=== PATIENT | male | born 1995 | race Caucasian/White ===

== ENCOUNTER 2021-03-20 02:55 | Emergency (ER) | payer OTHER ==
[2021-03-20 03:02] VITALS: BP 130/81; PULSE 112; TEMP 98.3; BMI 23.7
[2021-03-20] MEDS ORDERED: HEPATITIS B IMMUNE GLOBULIN 5 ML VIAL IM ONE (03:39)
[2021-03-20] MEDS ORDERED: HIV POST EXPOSURE PROPHYLAXIS KIT NR ONE (04:06)
[2021-03-20] MEDS ORDERED: HIV POST EXPOSURE PROPHYLAXIS KIT PO ONE (04:07)
[2021-03-20 04:42] LABS: BASO % 0.2 % (0-2.0); EOS % 0.2 % (0-4.5); HEMATOCRIT 42.4 % (35.4-49); HEMOGLOBIN 15.1 GM/dL (11.7-16.9); LYMPH % 22.4 % (8-40); MCH 31.2 pg (25.7-33.7); MCHC 35.6 g/dl (32.0-35.9); MEAN CELL VOLUME 87.6 fl (80-96); MEAN PLT VOLUME 7.4 fl (7.5-11.1); MONO % 7.3 % (3.8-10.2); NEUT % 69.9 % (42.8-82.8); PLATELET COUNT 233 10^3/uL (134-434); RBC 4.83 M/mm3 (4.00-5.60); RDW 13.5 % (11.9-15.9); WHITE BLOOD COUNT 9.4 K/mm3 (4.0-10.0)
[2021-03-20 05:01] LABS: CALCIUM 9.9 mg/dL (8.5-10.1)
[2021-03-20 05:02] LABS: ALBUMIN 5.1 g/dl (3.4-5.0); BLOOD UREA NITROGEN 16.4 mg/dL (7-18)
[2021-03-20 05:04] LABS: CREATININE 1.3 mg/dL (0.55-1.3); URIC ACID 5.5 mg/dL (2.6-7.2)
[2021-03-20 05:05] LABS: PHOSPHOROUS 4.3 mg/dL (2.5-4.9)
[2021-03-20 05:06] LABS: BILIRUBIN,TOTAL 0.8 mg/dL (0.2-1); TOT PROT 7.8 g/dl (6.4-8.2)
[2021-03-20 09:49] LABS: HIV INTERPRETATION NEGATIVE (NEGATIVE)
== END 2021-03-20 04:04 | disposition home or self-care (01) ==
LOC: FER 02:55
PROC: 3E0234Z Introduction of Serum, Toxoid and Vaccine into Muscle, Percutaneous Approach (ICD-10-PCS; principal; 2021-03-20)
DX: Z77.21 Contact with and (suspected) exposure to potentially hazardous body fluids (principal)
CPT/HCPCS: 36415; 80053; 82465; 82977; 83615; 84100; 84478; 84550; 85025; 86704; 86803; 87340; 87389; 87517; 99284-25

== ENCOUNTER 2022-06-12 05:07 | Emergency (ER) | payer BC, OTHER ==
[2022-06-12 05:17] VITALS: RESP 16; BMI 23.8
[2022-06-12 05:24] VITALS: BP 136/90; PULSE 102; TEMP 99.4
== END 2022-06-12 05:55 | disposition home or self-care (01) ==
LOC: FER 05:07
DX: S80.211A Abrasion, right knee, initial encounter (principal); S60.511A Abrasion of right hand, initial encounter; W01.0XXA Fall on same level from slipping, tripping and stumbling without subsequent striking against object, initial encounter; Y99.0 Civilian activity done for income or pay
CPT/HCPCS: 99282-25

== ENCOUNTER 2022-07-13 09:11 | Emergency (ER) | payer OTHER ==
[2022-07-13] MEDS ORDERED: IBUPROFEN 600 MG TABLET (FP) PO ONE ×2 (09:14→09:21)
[2022-07-13 10:03] VITALS: BP 128/85; PULSE 108; RESP 18; TEMP 99.3; BMI 26.4
== END 2022-07-13 11:07 | disposition home or self-care (01) ==
LOC: FER 09:11
DX: S99.912A Unspecified injury of left ankle, initial encounter (principal); M25.572 Pain in left ankle and joints of left foot; X50.1XXA Overexertion from prolonged static or awkward postures, initial encounter; Y93.89 Activity, other specified; Y99.0 Civilian activity done for income or pay
CPT/HCPCS: 73610-TC-LT-FY; 99283-25

== ENCOUNTER 2023-03-18 02:10 | Emergency (ER) | payer OTHER ==
[2023-03-18 02:13] VITALS: BP 124/80; PULSE 72; RESP 14; TEMP 98.5; BMI 24.4
== END 2023-03-18 02:40 | disposition home or self-care (01) ==
LOC: FER 02:10
DX: S63.622A Sprain of interphalangeal joint of left thumb, initial encounter (principal); S63.652A Sprain of metacarpophalangeal joint of right middle finger, initial encounter; M79.644 Pain in right finger(s); M79.645 Pain in left finger(s); W19.XXXA Unspecified fall, initial encounter
CPT/HCPCS: 99282-25